=== PATIENT | male | born 1955 | race Caucasian/White ===

== ENCOUNTER 2018-04-12 07:55 | Day surgery (SDC) | payer MEDICARE, BC ==
[2018-04-10 14:41] LABS: BASOPHILS # (AUTO) 0.1 X10'3 (0-0.2); BASOPHILS % (AUTO) 0.7 % (0-1); EOSINOPHILS # (AUTO) 0.2 X10'3 (0-0.9); EOSINOPHILS % (AUTO) 1.8 % (0-6); HEMOGLOBIN 16.2 g/dl (14.0-17.9); LYMPHOCYTES # (AUTO) 2.5 X10'3 (1.1-4.8); LYMPHOCYTES % (AUTO) 26.6 % (21-51); MEAN CORPUSCULAR HEMOGLOBIN 32.2 PG (27.0-31.0); MEAN CORPUSCULAR HGB CONC 33.8 g/dL (33.0-36.5); MEAN CORPUSCULAR VOLUME 95.2 FL (78-98); MEAN PLATELET VOLUME 9.1 FL (7.4-10.4); MONOCYTES # (AUTO) 0.8 X10'3 (0-0.9); MONOCYTES % (AUTO) 8.7 % (2-12); NEUTROPHILS # (AUTO) 5.8 X10'3 (1.8-7.7); NEUTROPHILS % (AUTO) 62.2 % (42-75); PLATELET COUNT 229 X10'3 (140-440); RED BLOOD COUNT 5.04 X10'6 (4.70-6.10); RED CELL DISTRIBUTION WIDTH 13.5 % (11.5-14.5); WHITE BLOOD COUNT 9.3 X10'3 (4.5-11.0)
[2018-04-10 14:53] LABS: ALBUMIN 3.8 G/DL (3.4-5.0); ANION GAP 9 (8-16); BLOOD UREA NITROGEN 17 MG/DL (7-18); CALCIUM 9.1 MG/DL (8.5-10.1); CHLORIDE 103 MMOL/L (99-107); CREATININE 0.81 MG/DL (0.60-1.10); GLUCOSE 92 MG/DL (70-104); POTASSIUM 4.2 MMOL/L (3.5-5.1); SODIUM 141 MMOL/L (135-145); TOTAL CARBON DIOXIDE 28.8 MMOL/L (24-32); eGFR > 90 ML/MIN
[2018-04-10 15:09] LABS: PARTIAL THROMBOPLASTIN TIME 25 SECONDS (22-32); PROTHROMBIN TIME 10.1 SECONDS (9.0-12.0)
[~2018-04-12] VITALS: Ht 180.3 cm; Wt 83.9 kg
[2018-04-12] VITALS (8 sets, daily range): BP systolic 126–137; BP diastolic 70–84
[~2018-04-12 07:55] MED LIST: ALPR-624 PO; AMOX-580 PO; ASPI-611 PO; ATEN25TA PO; HYDR-4353 PO; MECL12.584 PO; NITR0.4T51 SL; PRE5T PO; ROSU10TA PO; WARF-55 PO
[2018-04-12] MEDS ORDERED: verapamil 2.5 mg/ml inj IV ONE (08:56)
[2018-04-12] MEDS ORDERED: LIDOcaine 1% (10mg/ml)w/preservative injection 20ml MDV ONE (08:56)
[2018-04-12] MEDS ORDERED: fentaNYL/PF 50MCG/1 ML 2ML syringe ONE (08:56)
[2018-04-12] MEDS ORDERED: midazolam 2 mg/2 ml injection ONE (08:56)
[2018-04-12] MEDS ORDERED: heparin 1,000unit/ml 10ml vial 10 ML ONE (08:56)
[2018-04-12] MEDS ORDERED: iohexol 350MG/ML 100ml bottle IV ONE (08:57)
[2018-04-12] MEDS ORDERED: normal saline 1000ml 1,000 ML IV SCH ×2 (09:20→09:45)
[2018-04-12] MEDS ORDERED: LORazepam 0.5 MG tablet PO PRN ×2 (09:20→09:45)
[2018-04-12] MEDS ORDERED: diphenhydrAMINE 25mg capsule PO PRN ×2 (09:20→09:45)
[2018-04-12] MEDS ORDERED: ROSU20TA PO (09:34)
[2018-04-12] MEDS ORDERED: CLOP75TA15 PO (09:34)
[2018-04-12] MEDS ORDERED: ACET-812 PO (09:34)
[2018-04-12] MEDS ORDERED: GLIP5TAB26 PO (09:34)
[2018-04-12] MEDS ORDERED: LIDOcaine/PRILOcaine 5gm cream TP ONE (09:35)
[2018-04-12] MEDS ORDERED: nitroGLYCERIN-Tridil 50MG/D5W 250 ML IV ONE (09:52)
[2018-04-12] MEDS ORDERED: HYDROcodone/acetaminophen 5mg/325mg tablet PO PRN (11:05)
[2018-04-12] MEDS ORDERED: ondansetron/PF 4mg/2ml inj IV PRN (11:05)
[2018-04-12] MEDS ORDERED: proCHLORperazine 10 MG/2 ml inj IV PRN (11:05)
[2018-04-12] MEDS ORDERED: OXAZEpam 15mg capsule PO PRN (11:05)
[2018-04-12] MEDS ORDERED: HYDROcodone/acetaminophen 10/325mg tab PO PRN (11:05)
== END 2018-04-12 13:00 | disposition home or self-care (01) ==
LOC: SSTAY O 07:55
PROVIDERS: ATTEND Internal Medicine Interventional Cardiology
DX: I25.10 Atherosclerotic heart disease of native coronary artery without angina pectoris (principal); J44.9 Chronic obstructive pulmonary disease, unspecified; I10 Essential (primary) hypertension; G47.33 Obstructive sleep apnea (adult) (pediatric); I48.91 Unspecified atrial fibrillation; E11.9 Type 2 diabetes mellitus without complications
CPT/HCPCS: 36415; 80048; 82948; 85025; 85610; 85730; 93458; J1644; J2001; J2250; J3010; J7030; Q9967; A4620; C1769; J3490